=== PATIENT | female | born 1955 | race Asian ===

== ENCOUNTER 2018-10-26 15:52 | Emergency (ER) | payer OTHER ==
[2018-10-26] MEDS: FENTAnyl 50 MCG/ML VIAL IV (16:28)
== END 2018-10-27 04:34 | disposition home or self-care (01) ==
LOC: E/R 10-27 04:34
DX: B02.29 Other postherpetic nervous system involvement (principal); I12.9 Hypertensive chronic kidney disease with stage 1 through stage 4 chronic kidney disease, or unspecified chronic kidney disease; N18.9 Chronic kidney disease, unspecified; Z86.19 Personal history of other infectious and parasitic diseases
CPT/HCPCS: 96374; 99284-25